=== PATIENT | male | born 1960 ===

== ENCOUNTER 2017-03-14 15:19 | Emergency (ER) | payer OTHER ==
[2017-03-14 15:27] VITALS: TEMP 97.9; O2SAT 98
[2017-03-14] MEDS ORDERED: Tmp-Smz 800 mg-160 mg DS Tab PO STA (15:49)
--- NOTE | 2017-03-14 15:51 | C.PDOC ---
History Of Present Illness 56 y/o male c/o area of swelling and pain to an area on right second digit for approx 1 week. Patient states the area popped open yesterday, and some fluid drained out. Patient reports history of HIV, compliant with HAART, CD4 is "normal". He denies fever, trauma/injury, sensory changes. Patient reports he called his PMD, Dr. Francis, was instructed by the office to come to ER. Time Seen by Provider: 03/14/17 15:23 Chief Complaint (Nursing): Finger,Hand,&Wrist History Per: Patient History/Exam Limitations: no limitations Onset/Duration Of Symptoms: Days Current Symptoms Are (Timing): Still Present Severity: Mild Recent travel outside of the [place]: No Past Medical History Reviewed: Historical Data, Nursing Documentation, Vital Signs Vital Signs: Last Vital Signs Temp 97.9 F 03/14/17 15:24 Pulse 68 03/14/17 15:56 Resp 18 03/14/17 15:56 BP 138/78 03/14/17 15:56 Pulse Ox 98 03/14/17 17:50 - Medical History PMH: HIV, Sexually Transmitted Disease Surgical History: Tonsillectomy Family History: States: No Known Family Hx - Social History Hx Alcohol Use: Yes Hx Substance Use: No - Immunization History Hx Tetanus Toxoid Vaccination: No Hx Influenza Vaccination: Yes Hx Pneumococcal Vaccination: No Review Of Systems Except As Marked, All Systems Reviewed And Found Negative. Constitutional: Negative for: Fever, Chills Cardiovascular: Negative for: Chest Pain, Palpitations Respiratory: Negative for: Cough, Shortness of Breath Gastrointestinal: Negative for: Nausea, Vomiting Skin: Positive for: Lesions (right second digit) Neurological: Negative for: Weakness, Numbness, Dizziness Physical Exam - Physical Exam Appears: Well, Non-toxic, No Acute Distress Skin: Normal Color, Warm, Dry Oral Mucosa: Moist Cardiovascular: Rhythm Regular Respiratory: Normal Breath Sounds, No Rales, No Rhonchi, No Wheezing Back: Normal Inspection Extremity: Normal ROM, Capillary Refill (< 2 sec all digits), No Deformity, No Swelling, Other (right lateral aspect of second digit: small furuncle, mildly tender, non-fluctuant, without erythema. Normal sensation.) Extremity: Bilateral: Atraumatic, Normal Color And Temperature, Normal ROM Pulses: Left Radial: Normal, Right Radial: Normal Neurological/Psych: Oriented x3, Normal Sensation ED Course And Treatment O2 Sat by Pulse Oximetry: 98 (RA) Pulse Ox Interpretation: Normal Progress Note: Patient given PO Bactrim in ED and Rx for same. He was instructed to follow up with PMD in 1-2 days, and understands he should return to ED if symptoms worsen. Disposition Counseled Patient/Family Regarding: Diagnosis, Need For Followup, Rx Given - Disposition Referrals: Navjot Francis MD [Staff Provider] - Disposition: HOME/ ROUTINE Disposition Time: 15:55 Condition: STABLE Additional Instructions: FOLLOW UP WITH YOUR DOCTOR IN 1-2 DAYS APPLY WARM COMPRESSES TO AREA USE MEDICATIONS DIRECTED RETURN TO ER IF SYMPTOMS WORSEN Prescriptions: Sulfamethoxazole/Trimethoprim [Bactrim DS 800 mg-160 mg] 1 tab PO BID #14 tab Instructions: Furunculosis and Carbunculosis (ED) Forms: [facility] (Greek) Print Language: MONEGASQUE - POA Present On Arrival: None - Clinical Impression Clinical Impression: Finger carbuncle or furuncle - Scribe Statement The provider has reviewed the documentation as recorded by the Scribe SM All medical record entries made by the Scribe were at my direction and personally dictated by me. I have reviewed the chart and agree that the record accurately reflects my personal performance of the history, physical exam, medical decision making, and the department course for this patient. I have also personally directed, reviewed, and agree with the discharge instructions and disposition.
[2017-03-14] MEDS ORDERED: Tmp-Smz 800 mg-160 mg DS Tab ONE (15:54)
[2017-03-14 15:59] VITALS: BP 138/78; PULSE 68; RESP 18
== END 2017-03-14 15:58 | disposition home or self-care (01) ==
LOC: C.ER 15:19
DX: L02.531 Carbuncle of right hand (principal); L02.521 Furuncle right hand